=== PATIENT | male | born 1995 | race Caucasian/White ===

== ENCOUNTER 2019-05-12 19:34 | Emergency (ER) | payer BC ==
[~2019-05-12] VITALS: Ht 188 cm; Wt 93.2 kg
[2019-05-12 20:09] VITALS: BP 140/73; TEMP 98.5
[2019-05-12 22:33] VITALS: PULSE 81
== END 2019-05-12 22:45 | disposition home or self-care (01) ==
LOC: COL.ER 19:34
DX: S61.012A Laceration without foreign body of left thumb without damage to nail, initial encounter (principal); Z23 Encounter for immunization; W26.0XXA Contact with knife, initial encounter; Y92.009 Unspecified place in unspecified non-institutional (private) residence as the place of occurrence of the external cause

== ENCOUNTER 2021-04-13 11:48 | Emergency (ER) | payer BC ==
[~2021-04-13] VITALS: Ht 185.4 cm; Wt 100.0 kg
[2021-04-13 12:25] LABS: BASO % 0.3 % (0.0-2.0); EOS # 0.1 K/mm3 (0.0-0.7); EOS % 2.4 % (0.0-4.0); GRAN # 3.4 K/mm3 (1.4-6.5); GRAN % 58.4 % (42.2-75.2); HEMATOCRIT 43.4 % (42.0-52.0); LYMPH # 1.6 K/mm3 (1.2-3.4); LYMPH % 28.2 % (20.0-51.0); MEAN CELL VOLUME 81 fl (80.0-100.0); MEAN CORPUSCULAR HEMOGLOBIN 28 pg (27-31); MEAN CORPUSCULAR HGB CONC 35 g/dl (33.0-37.0); MEAN PLATELET VOLUME 9.2 fl (7.4-10.4); MONO # 0.6 K/mm3 (0.1-0.6); MONO % 10.4 % (1.7-9.3); PLATELET COUNT 279 K/mm3 (130-400); RED BLOOD COUNT 5.34 M/mm3 (4.20-5.60); REDCELL DISTRIBUTION WIDTH-CV 12.7 % (11.5-14.5)
[2021-04-13 12:41] LABS: ALBUMIN 4.4 gm/dL (3.5-5.0); BILIRUBIN,TOTAL 2.3 mg/dL (0.2-1.2); C-REACTIVE PROTEIN 0.72 mg/dL (0.00-0.50); CALCIUM 8.9 mg/dL (8.4-10.2); CREATININE, serum 0.99 mg/dL (0.72-1.25); POTASSIUM 3.7 mmol/L (3.5-4.5)
[2021-04-13 16:05] VITALS: BP 128/74; PULSE 80; TEMP 98.4
== END 2021-04-13 16:05 | disposition home or self-care (01) ==
LOC: COL.ER 11:48
PROVIDERS: Emergency Medicine
DX: K52.9 Noninfective gastroenteritis and colitis, unspecified (principal)
CPT/HCPCS: J7030; Q9967